=== PATIENT | male | born 1990 | race Caucasian/White ===

== ENCOUNTER 2018-10-09 05:34 | Emergency (ER) | payer BC ==
[2018-10-09] MEDS ORDERED: Benzocaine 20% Topical Spray UD MUCMEM ONE (05:48)
[2018-10-09] MEDS ORDERED: Lidocaine 2% Viscous Solution 15 ML Cup PO ONE (05:48)
[2018-10-09] MEDS ORDERED: Amoxicillin/Clavulanate K 875-125 MG Tab PO ONE (05:49)
--- NOTE | 2018-10-09 05:56 | EDM.PDOC ---
ED HPI GENERAL MEDICAL PROBLEM - General Chief Complaint: ENT Problem Stated Complaint: LT SIDE OF FACE SWOLLEN Time Seen by Provider: 10/09/18 05:44 - History of Present Illness INITIAL COMMENTS - FREE TEXT/NARRATIVE: HISTORY AND PHYSICAL: History of present illness: The patient is a 27-year-old male who is aware that he has multiple dental caries and presents saying that he has a known chipped tooth on the left lower side and he woke up this morning with facial swelling and thought he should come into the ED. He did take 1 dose of ibuprofen prior to coming here. He does have a local dentist and says that he has not followed up with his dental problems due to lack of funding. The facial swelling is what concerned him as he is concerned about ear infection. The patient has been eating and drinking normally yesterday and he did not place any ice on his face for the swelling Review of systems: As per history of present illness and below otherwise all systems reviewed and negative. Past medical history: As per history of present illness and as reviewed below otherwise noncontributory. Surgical history: As per history of present illness and as reviewed below otherwise noncontributory.. Social history: No reported history of drug or alcohol abuse. Family history: As per history of present illness and as reviewed below otherwise noncontributory. Physical exam: General: Developed well-nourished man who is nontoxic and vital signs are noted by me. HEENT: Atraumatic, normocephalic, pupils reactive, negative for conjunctival pallor or scleral icterus, mucous membranes moist, throat clear, neck supple, nontender, trachea midline. Visible swelling of the mandible on the left is seen there is no cervical adenopathy or nuchal rigidity and there is no intraoral swelling or posterior oropharyngeal erythema. There are multiple areas of dental disease and the one that the patient is most concerned about his tooth #20 where there is a small section missing on the posterior side and there is soft tissue swelling of the gum but no fluctuance. Lungs: Clear to auscultation, breath sounds equal bilaterally, chest nontender. Heart: S1S2, regular rate and rhythm no overt murmurs Abdomen: Soft, nondistended, nontender. NABS Pelvis: Stable nontender. Genitourinary: Deferred. Rectal: Deferred. Extremities: Atraumatic, full range of motion Neurovascular unremarkable. Neuro: Awake, alert, oriented. Cranial nerves II through XII unremarkable. Cerebellum unremarkable. Motor and sensory unremarkable throughout. Exam nonfocal. Diagnostics: [] Therapeutics: Dental balls Augmentin Impression: Dental infection secondary to tooth fracture Definitive disposition and diagnosis as appropriate pending reevaluation and review of above. tooth Pain Score (Numeric/FACES): 10 - Related Data Allergies Allergy/AdvReac Type Severity Reaction Status Date / Time No Known Allergies Allergy Verified 10/09/18 05:45 Home Meds: Home Meds . [No Known Home Meds] 10/09/18 [History] Past Medical History - Past Health History Medical/Surgical History: Denies Medical/Surgical History HEENT History: Reports: None Cardiovascular History: Reports: None Respiratory History: Reports: None Gastrointestinal History: Reports: None Genitourinary History: Reports: None Musculoskeletal History: Reports: None Neurological History: Reports: None Psychiatric History: Reports: Hallucinations, Schizophrenia, Suicidal Ideation Endocrine/Metabolic History: Reports: None Hematologic History: Reports: None Immunologic History: Reports: None Oncologic (Cancer) History: Reports: None Dermatologic History: Reports: None - Infectious Disease History Infectious Disease History: Reports: None - Past Surgical History Head Surgeries/Procedures: Reports: None Social & Family History - Family History Family Medical History: Noncontributory - Tobacco Use Smoking Status *Q: Current Every Day Smoker Years of Tobacco use: 16 Packs/Tins Daily: 1 - Caffeine Use Caffeine Use: Reports: None - Recreational Drug Use Recreational Drug Use: No ED ROS GENERAL - Review of Systems Review Of Systems: ROS reveals no pertinent complaints other than HPI. ED EXAM, GENERAL - Physical Exam Exam: See Below (See dictation) Course - Vital Signs Last Recorded V/S: Last Vital Signs Temp 36.3 C 10/09/18 05:38 Pulse 120 H 10/09/18 05:38 Resp 18 10/09/18 05:38 BP 125/75 10/09/18 05:38 Pulse Ox 95 10/09/18 05:38 - Orders/Labs/Meds Orders: Active Orders 24 hr Category Date Time Status Amoxicillin/Clavulanate K [Augmentin 875 MG/125 MG] Med 10/09/18 05:49 Once 1 tab PO ONETIME ONE Benzocaine [Hurricaine One 20%] Med 10/09/18 05:48 Once 2 each MUCMEM ONETIME ONE Lidocaine 2% [Xylocaine 2% Viscous] Med 10/09/18 05:48 Once 15 ml PO ONETIME ONE Medication Orders Amoxicillin/Clavulanate Potassium (Augmentin 875 Mg/125 Mg) 1 tab PO ONETIME ONE Stop: 10/09/18 05:50 Benzocaine (Hurricaine One 20%) 2 each MUCMEM ONETIME ONE Stop: 10/09/18 05:49 Lidocaine HCl (Xylocaine 2% Viscous) 15 ml PO ONETIME ONE Stop: 10/09/18 05:49 Meds: Medications Generic Name Dose Route Start Last Admin Trade Name Abhilashq PRN Reason Stop Dose Admin Amoxicillin/Clavulanate Potassium 1 tab 10/09/18 05:49 Augmentin 875 Mg/125 Mg PO 10/09/18 05:50 ONETIME ONE Benzocaine 2 each 10/09/18 05:48 Hurricaine One 20% MUCMEM 10/09/18 05:49 ONETIME ONE Lidocaine HCl 15 ml 10/09/18 05:48 Xylocaine 2% Viscous PO 10/09/18 05:49 ONETIME ONE Departure - Departure Time of Disposition: 05:54 Disposition: Home, Self-Care 01 Condition: Good Clinical Impression: Dental infection - Discharge Information Referrals: PCP,None [Primary Care Provider] - Additional Instructions: The following information is given to patients seen in the emergency department who are being discharged to home. This information is to outline your options for follow-up care. We provide all patients seen in our emergency department with a follow-up referral. The need for follow-up, as well as the timing and circumstances, are variable depending upon the specifics of your emergency department visit. If you don't have a primary care physician on staff, we will provide you with a referral. We always advise you to contact your personal physician following an emergency department visit to inform them of the circumstance of the visit and for follow-up with them and/or the need for any referrals to a consulting specialist. The emergency department will also refer you to a specialist when appropriate. This referral assures that you have the opportunity for followup care with a specialist. All of these measure are taken in an effort to provide you with optimal care, which includes your followup. Under all circumstances we always encourage you to contact your private physician who remains a resource for coordinating your care. When calling for followup care, please make the office aware that this follow-up is from your recent emergency room visit. If for any reason you are refused follow-up, please contact the [facility] emergency department at and ask to speak to the emergency department charge nurse. [facility] Primary care- Internal Medicine and Family [address] [address] Use ice to face all day today on and off as you can tolerate to help with the swelling and use [id number] Tylenol or ibuprofen for pain management. Ibuprofen correct dose for your weight is 800 mg every 8 hours. Please take the Augmentin as prescribed and use dental balls as directed by nursing staff here in the ED for pain management. Please connect with your dentist for definitive care and treatment and return to ER as needed and as discussed - My Orders Last 24 Hours: My Active Orders 10/09/18 05:48 Benzocaine [Hurricaine One 20%] 2 each MUCMEM ONETIME ONE Lidocaine 2% [Xylocaine 2% Viscous] 15 ml PO ONETIME ONE 10/09/18 05:49 Amoxicillin/Clavulanate K [Augmentin 875 MG/125 MG] 1 tab PO ONETIME ONE - Assessment/Plan Last 24 Hours: My Active Orders 10/09/18 05:48 Benzocaine [Hurricaine One 20%] 2 each MUCMEM ONETIME ONE Lidocaine 2% [Xylocaine 2% Viscous] 15 ml PO ONETIME ONE 10/09/18 05:49 Amoxicillin/Clavulanate K [Augmentin 875 MG/125 MG] 1 tab PO ONETIME ONE
[2018-10-09 06:20] VITALS: BP 100/52
== END 2018-10-09 06:15 | disposition home or self-care (01) ==
LOC: MW.ED 05:34
DX: K04.7 Periapical abscess without sinus (principal); K03.81 Cracked tooth
CPT/HCPCS: 99282; A9270